=== PATIENT | female | born 1955 | race Caucasian/White ===

== ENCOUNTER → 2016-12-20 | Outpatient (CLI) | payer OTHER ==
[~2016-12-20] MED LIST: ARIMIDEX1 MG; ARIMIDEX1 MG PO; Arimidex PO; BYSTOLIC5 MG PO; Bystolic PO; CALCIUM CITRAT1 EA14 PO; ENDOCET 5-3251 EACH PO; Ecotrin PO; LEXAPRO10 MG PO; LEXAPRO5 MG PO; LISINOPRIL-HCT1 EACH; LISINOPRIL5 MG PO; PRAVACHOL20 MG PO; TYLENOL EXTRA500 MG PO; Vibramycin, Doryx PO; ZESTORETIC,P1 TABLET PO; ZETIA10 MG; ZETIA10 MG PO; Zestoretic,Prinzide PO; Zestril,Prinivil PO
== END | disposition home or self-care (01) ==
LOC: CDC 15:17
DX: Z01.810 Encounter for preprocedural cardiovascular examination (principal); R22.9 Localized swelling, mass and lump, unspecified
CPT/HCPCS: 93000

== ENCOUNTER 2017-01-08 09:17 | Day surgery (SDC) | payer OTHER ==
[~2017-01-08] VITALS: Ht 160 cm; Wt 88.5 kg
[~2017-01-08 09:17] MED LIST changes: +TOPROL XL25 MG PO
[2017-01-08 09:44] VITALS: BP 161/79
[2017-01-08 11:04] LABS: METH RESISTANT S AUREUS PCR NEGATIVE (NEGATIVE); PROBE CHECK PASS; SPECIMEN PROCESSING CONTROL PASS
[2017-01-08 13:58] VITALS: BP 143/81
[2017-01-08 14:37] VITALS: BP 133/62
== END 2017-01-08 14:50 | disposition home or self-care (01) ==
LOC: SDC
PROVIDERS: Surgery
PROC: 0JB80ZZ Excision of Abdomen Subcutaneous Tissue and Fascia, Open Approach (ICD-10-PCS; principal; 2017-01-08)
DX: D17.1 Benign lipomatous neoplasm of skin and subcutaneous tissue of trunk (principal); F41.8 Other specified anxiety disorders; I10 Essential (primary) hypertension; E78.5 Hyperlipidemia, unspecified; Z82.49 Family history of ischemic heart disease and other diseases of the circulatory system; Z84.1 Family history of disorders of kidney and ureter; Z80.0 Family history of malignant neoplasm of digestive organs; Z83.3 Family history of diabetes mellitus; Z88.2 Allergy status to sulfonamides
CPT/HCPCS: 87641; 88304; J0690; J2250; J2405; J3010; S0020